=== PATIENT | female | born 1960 | race Caucasian/White ===

== ENCOUNTER → 2020-03-31 11:27 | Outpatient (BNVA) | payer BC, SELFPAY | PROVIDERS: Family Provider Family Medicine; PCP Family Medicine; Visit Provider Internal Medicine Cardiovascular Disease | DX: I10 Essential (primary) hypertension (principal); G43.909 Migraine, unspecified, not intractable, without status migrainosus; I49.3 Ventricular premature depolarization | CPT/HCPCS: 80053; 84443; 85025 ==

== ENCOUNTER → 2020-10-20 10:30 | Outpatient (BNVA) | payer BC, SELFPAY | PROVIDERS: Family Provider Family Medicine; PCP Family Medicine; Visit Provider Family Medicine | DX: R53.83 Other fatigue (principal); Z13.1 Encounter for screening for diabetes mellitus; E89.41 Symptomatic postprocedural ovarian failure; I10 Essential (primary) hypertension; I25.10 Atherosclerotic heart disease of native coronary artery without angina pectoris; Z13.220 Encounter for screening for lipoid disorders; Z13.6 Encounter for screening for cardiovascular disorders; Z83.49 Family history of other endocrine, nutritional and metabolic diseases; K21.00 Gastro-esophageal reflux disease with esophagitis, without bleeding; R49.0 Dysphonia; R53.82 Chronic fatigue, unspecified | CPT/HCPCS: 80053; 80061; 83001; 83002; 83036; 84443; 85025 ==

== ENCOUNTER 2021-01-28 18:27 | Emergency (ER) | payer BC, SELFPAY ==
[2021-01-28 19:46] VITALS: BP 109/73; PULSE 80; RESP 18; TEMP 36.8; O2SAT 96; BMI 33.8
[2021-01-28 20:58] LABS: Basophils # 0.1 10^3/uL (0.0-0.1); Basophils % 0.9 %; Eosinophils # 0.2 10^3/uL (0.0-0.8); Eosinophils % 2.4 %; Hematocrit 37.7 % (37.0-47.0); Hemoglobin 11.9 g/dL (11.5-15.3); Lymphocytes # 3.1 10^3/uL (0.8-4.8); Lymphocytes % 33.4 %; Mean Corpuscular HGB Conc 31.6 g/dL (30.0-36.0); Mean Corpuscular Hemoglobin 29.6 pg (28.0-34.0); Mean Corpuscular Volume 93.8 fL (81-99); Monocytes # 0.9 10^3/uL (0.2-0.9); Monocytes % 9.2 %; Neutrophils # 4.99 10^3/uL (1.8-7.7); Nucleated Red Blood Cells % 0 %; Platelet Count 429 10^3/cmm (130-400); Red Blood Count 4.02 10^6/uL (4.1-5.3); Red Cell Distribution Width 13.2 % (12.1-15.1); White Blood Count 9.2 10^3/uL (4.0-10.0)
[2021-01-28 21:20] LABS: Alanine Aminotransferase 14 U/L (0-33); Albumin Level 4.3 g/dL (3.5-5.2); Alkaline Phosphatase 99 IU/L (35-105); Anion Gap 11.7 (5-19); Aspartate Amino Transferase 20 U/L (0-32); Blood Urea Nitrogen 5 mg/dL (6-20); Calcium 8.5 mg/dL (8.5-10.5); Carbon Dioxide 30 mmol/L (22-29); Chloride 99 mmol/L (98-107); Globulin 3.1 g/dL (1.3-4.6); Glomerular Filtration Rate 64.3 mL/min (90-130); Glucose 101 mg/dL (65-115); Lipase 28 U/L (13-60); Osmolality Calculated 281 mOsm/kg (285-295); Potassium 3.7 mmol/L (3.5-5.1); Sodium 137 mmol/L (136-145); Total Bilirubin 0.5 mg/dL (0.15-1.2); Total Protein 7.4 g/dL (6.6-8.7)
[2021-01-28 21:21] LABS: Lactate (Lactic Acid level) 0.6 mmol/L (0.5-2.2)
[2021-01-28 21:41] VITALS: BP 124/80; PULSE 71; RESP 18; O2SAT 97
--- NOTE | 2021-01-28 21:55 | CTR_ITS ---
PROCEDURE INFORMATION: Exam: CT Abdomen And Pelvis With Contrast Exam date and time: 01/28/2021 10:02 PM Age: 60 years old Clinical indication: Nausea and vomiting; Abdominal pain; Localized; Right lower quadrant (rlq); Prior surgery; Surgery type: Hernia; Patient HX: Rlq abd pain with n/v; Additional info: Rlq pain TECHNIQUE: Imaging protocol: Computed tomography of the abdomen and pelvis with contrast. Radiation optimization: All CT scans at this facility use at least one of these dose optimization techniques: automated exposure control; mA and/or kV adjustment per patient size (includes targeted exams where dose is matched to clinical indication); or iterative reconstruction. Contrast material: OMNI 300; Contrast volume: 95 ml; Contrast route: INTRAVENOUS (IV); COMPARISON: CT abdomen pelvis w con* [id number] 03/09/2019 9:46 PM RADIATION DOSE METRICS: Total DLP (mGy-cm): 1773.65 FINDINGS: Lungs: A stable calcified granuloma seen in the right lung base. Liver: There are stable hepatic cysts present, the largest is seen in the left hepatic lobe measuring 1 cm in diameter. Gallbladder and bile ducts: Normal. No calcified stones. No ductal dilation. Pancreas: Normal. No ductal dilation. Spleen: Calcifications are seen within the spleen compatible with calcified granulomas. Adrenal glands: Normal. No mass. Kidneys and ureters: A stable 14 mm cyst is seen on the lateral aspect of the right kidney. Mild hydronephrosis seen within the right kidney. 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 Stomach and bowel: Unremarkable. No obstruction. No mucosal thickening. Appendix: The appendix is not seen in today's examination. There are no inflammatory changes seen to suggest appendicitis. Intraperitoneal space: Unremarkable. No free air. No significant fluid collection. Vasculature: Unremarkable. No abdominal aortic aneurysm. Lymph nodes: Mildly prominent periportal lymph node is seen that appears smaller today compared with 03/09/2019 measuring 11 mm in transverse diameter. Urinary bladder: Unremarkable as visualized. Reproductive: Status post hysterectomy. Bones/joints: Unremarkable. No acute fracture. Soft tissues: Unremarkable. CT/CT abdomen pelvis w con* [id number] IMPRESSION: 1. There are no acute abdominal findings. 2. Stable benign hepatic and right renal cysts. 3. Mildly prominent periportal lymph node measuring 11 mm transverse diameter appearing smaller today compared with 03/09/2019. 4. Partial duplication of the right ureter. There is mild hydronephrosis seen on the right. There is no evidence for ureteral obstruction. Radiation Dose CTDIVOL = (mGy): DLP = 1773.65 (mGy-cm)
[2021-01-28] MEDS: iohexol 300 mg/mL 100 mL Btl IV (22:05)
[2021-01-28 22:32] LABS: Add Urine Microscopic? YES; Bacteria Urine TRACE /hpf; Bilirubin Urine Neg (Negative); Blood Urine Neg (Negative); Glucose Urine UA Norm (Normal); Ketones Urine Negative (Negative); Leukocyte Esterase Urine Trace (Negative); Nitrate Urine Negative (Negative); Protein Urine Neg (Negative); RBC Urine 0-4 /hpf (0-2); Squamous Epithelial Cell Urine 0-4 /hpf (0-5); Urine Appearance Clear (CLEAR); Urine Color Yellow (Yellow); Urobilinogen Urine Norm (Negative); pH Urine 6 (5-7)
--- NOTE | 2021-01-28 23:09 | W.ED.ABDPA2 ---
HPI - Abdominal Pain General: Chief Complaint: Abdominal Pain Stated Complaint: Stomach Pains, N/V Time Seen by Provider: 01/28/21 21:32 History of Present Illness: HPI narrative: 60-year-old female complaining of abdominal pain, primarily right lower quadrant, on and off for the last 2 days. Associated with nausea, vomiting, bloating, cramping. No fever. No dysuria. She is not had symptoms like this in the past. No diarrhea or flatulence. No heartburn. MD elicited complaint: abdominal pain Associated Symptoms: Reports bloating, constipation and nausea; Denies chills, dysuria, fever(s), heartburn, hematemesis and vomiting Review of Systems General: Reports: 10 or more systems reviewed and unremarkable except in HPI and below Const: Reports: change in appetite; Denies: fever(s), chills or body aches ENMT: Denies: throat pain or enlarged tonsils Card: Denies: chest pain, palpitations, irregular heart rhythm or edema Resp: Denies: dyspnea, productive cough or pain on inspiration GI: Reports: abdominal pain, nausea, constipation and bloating; Denies: vomiting, hematemesis, dysphagia or heartburn : Denies: difficulty voiding, dysuria or urinary frequency Musc: Denies: neck pain or back pain Neuro: Denies: headache(s), numbness in extremities or weakness in extremities Endo: Denies: polyuria, polydipsia or tired all the time [facility] ED PFSH: Medical History CAD (coronary artery disease) Family history of ischemic heart disease and other diseases of the circulatory system GERD (gastroesophageal reflux disease) History of Clostridium difficile colitis HTN (hypertension) Major depressive disorder Migraine Osteopenia PVC (premature ventricular contraction) Social History Smoking and tobacco status: former smoker Quit status (tobacco): has quit using tobacco Female Reproductive History: Spontaneous abortions: No Physical Exam Const: COMMON NORMALS: no acute distress, patient oriented x3, healthy appearing, alert and well nourished GENERAL APPEARANCE: cooperative, comfortable and anxious; not in distress and not ill appearing HENMT: COMMON NORMALS: normocephalic and atraumatic HEAD & SCALP: normocephalic and atraumatic Eye: COMMON NORMALS: Equal, round and reactive pupils present, EOMs intact bilaterally, conjunctivae normal and no scleral icterus CONJUNCTIVA: Yes conjunctivae normal PUPIL: Yes Equal, round and reactive pupils present Resp: COMMON NORMALS: normal respiratory effort, No use of accessory muscles and clear to auscultation bilaterally AUSCULTATION: clear to auscultation bilaterally Cardio: COMMON NORMALS: regular rate and regular rhythm RATE: regular rate RHYTHM: regular rhythm HEART SOUNDS: no murmurs GI: COMMON NORMALS: Normal to inspection, nondistended, normoactive bowel sounds present, Soft to palpation, No hepatosplenomegaly present and no masses INSPECTION: No Abdominal wall edema PALPATION: Yes Soft to palpation, Yes Tenderness to palpation present (GI) Details: RLQ, RUQ and other (epigastric), No Guarding due to palpation present (GI), Yes No hepatosplenomegaly present, No Hernia present, No Palpable mass present, No Pulsatile mass present and No Rebound tenderness present : COMMON NORMALS: Yes no CVA tenderness BLADDER/KIDNEY EXAM: Yes no CVA tenderness EXTERNAL FEMALE EXAM: No Hernia present Back/Pelvis: COMMON NORMALS: no CVA tenderness and thoracic and lumbar spine normal to inspection Neuro: COMMON NORMALS: patient oriented x3 SENSORIUM/ORIENTATION: Yes alert Skin: COMMON NORMALS: no rashes or lesions noted, no wounds, turgor normal and no jaundice GENERAL SKIN EXAM: no rashes or lesions noted and turgor normal Course Vital Signs: Vital signs: Vital Signs Temperature 98.2 F 01/28/21 19:46 Pulse Rate 79 01/29/21 00:11 Respiratory Rate 18 01/29/21 00:11 Blood Pressure 130/83 01/29/21 00:11 Pulse Oximetry 99 01/29/21 00:11 MDM - Abdominal Pain MDM Narrative: Medical decision making narrative: 60-year-old female with 2-3 day history of intermittent abdominal cramping and pain, bloating. Mainly on the right side. Labs negative for any acute abnormalities. CT abdomen pelvis negative for any acute inflammatory process. UA:Trace LE, trace bacteria,10-15 WBCs : Possible UTI, she does have suprapubic tenderness, will prescribe 3-day course of antibiotics. CT abdomen does not show any acute inflammatory process. There is mild hydronephrosis of the right kidney, without any evidence of ureteral obstruction. Treated with cefdinir and Levsin. Instructed to return immediately to the ER if she had worsening pain, or if she developed a fever, nausea and vomiting, Differential Diagnosis: Differential diagnosis abdominal pain: Likely abdominal pain, acute appendicitis, calculus of kidney, constipation, diverticulitis, gastroenteritis, pancreatitis and small bowel obstruction Medical Records: Attestation: I reviewed the patient's medical records. Lab Data: Attestation: I reviewed the patient's lab results. Labs: Lab Results 01/28/21 01/28/21 01/28/21 Range/Units 20:51 20:51 20:51 WBC 9.2 (4.0-10.0) 10^3/ uL RBC 4.02 L (4.1-5.3) 10^6/u L Hgb 11.9 (11.5-15.3) g/dL Hct 37.7 (37.0-47.0) % MCV 93.8 (81-99) fL MCH 29.6 (28.0-34.0) pg MCHC 31.6 (30.0-36.0) g/dL RDW 13.2 (12.1-15.1) % Plt Count 429 H (130-400) 10^3/c mm MPV 10.0 (7.4-10.4) fL Neut % (Auto) 54.0 % Lymph % (Auto) 33.4 % Finney % (Auto) 9.2 % Eos % (Auto) 2.4 % Baso % (Auto) 0.9 % Neut # (Auto) 4.99 (1.8-7.7) 10^3/u L Lymph # (Auto) 3.1 (0.8-4.8) 10^3/u L Finney # (Auto) 0.9 (0.2-0.9) 10^3/u L Eos # (Auto) 0.2 (0.0-0.8) 10^3/u L Baso # (Auto) 0.1 (0.0-0.1) 10^3/u L Nucleated RBC % (a uto) 0 % Nucleated RBCs # 0.0 /100WBC Sodium 137 (136-145) mmol/L Potassium 3.7 (3.5-5.1) mmol/L Chloride 99 (98-107) mmol/L Carbon Dioxide 30 H (22-29) mmol/L Anion Gap 11.7 (5-19) BUN 5 L (6-20) mg/dL Creatinine 0.9 (0.5-0.9) mg/dL GFR Calculation 64.3 L (90-130) mL/min Glucose 101 (65-115) mg/dL Calculated Osmolal ity 281 L (285-295) mOsm/k g Lactate 0.6 (0.5-2.2) mmol/L Calcium 8.5 (8.5-10.5) mg/dL Total Bilirubin 0.5 (0.15-1.2) mg/dL AST 20 (0-32) U/L ALT 14 (0-33) U/L Alkaline Phosphata se 99 (35-105) IU/L Total Protein 7.4 (6.6-8.7) g/dL Albumin 4.3 (3.5-5.2) g/dL Globulin 3.1 (1.3-4.6) g/dL Lipase 28 (13-60) U/L Urine Color (Yellow) Urine Appearance (CLEAR) Urine pH (5-7) Ur Specific Gravit y (1.005-1.030) Urine Protein (Negative) Urine Glucose (UA) (Normal) Urine Ketones (Negative) Urine Blood (Negative) Urine Nitrate (Negative) Urine Bilirubin (Negative) Urine Urobilinogen (Negative) mg/dL Ur Leukocyte Yolande ase (Negative) Urine RBC (0-2) /hpf Urine WBC (0-5) /hpf Ur Squamous Epith Cells (0-5) /hpf Amorphous Sediment Urine Bacteria (NONE) /hpf 01/28/ Range/Units 22:02 WBC (4.0-10.0) 10^3/ uL RBC (4.1-5.3) 10^6/u L Hgb (11.5-15.3) g/dL Hct (37.0-47.0) % MCV (81-99) fL MCH (28.0-34.0) pg MCHC (30.0-36.0) g/dL RDW (12.1-15.1) % Plt Count (130-400) 10^3/c mm MPV (7.4-10.4) fL Neut % (Auto) % Lymph % (Auto) % Finney % (Auto) % Eos % (Auto) % Baso % (Auto) % Neut # (Auto) (1.8-7.7) 10^3/u L Lymph # (Auto) (0.8-4.8) 10^3/u L Finney # (Auto) (0.2-0.9) 10^3/u L Eos # (Auto) (0.0-0.8) 10^3/u L Baso # (Auto) (0.0-0.1) 10^3/u L Nucleated RBC % (a uto) % Nucleated RBCs # /100WBC Sodium (136-145) mmol/L Potassium (3.5-5.1) mmol/L Chloride (98-107) mmol/L Carbon Dioxide (22-29) mmol/L Anion Gap (5-19) BUN (6-20) mg/dL Creatinine (0.5-0.9) mg/dL GFR Calculation (90-130) mL/min Glucose (65-115) mg/dL Calculated Osmolal ity (285-295) mOsm/k g Lactate (0.5-2.2) mmol/L Calcium (8.5-10.5) mg/dL Total Bilirubin (0.15-1.2) mg/dL AST (0-32) U/L ALT (0-33) U/L Alkaline Phosphata se (35-105) IU/L Total Protein (6.6-8.7) g/dL Albumin (3.5-5.2) g/dL Globulin (1.3-4.6) g/dL Lipase (13-60) U/L Urine Color Yellow (Yellow) Urine Appearance Clear (CLEAR) Urine pH 6 (5-7) Ur Specific Gravit y 1.010 (1.005-1.030) Urine Protein Neg (Negative) Urine Glucose (UA) Norm (Normal) Urine Ketones Negative (Negative) Urine Blood Neg (Negative) Urine Nitrate Negative (Negative) Urine Bilirubin Neg (Negative) Urine Urobilinogen Norm (Negative) mg/dL Ur Leukocyte Yolande ase Trace H (Negative) Urine RBC 0-4 H (0-2) /hpf Urine WBC 10-15 H (0-5) /hpf Ur Squamous Epith Cells 0-4 H (0-5) /hpf Amorphous Sediment Not Reportable Urine Bacteria Trace (NONE) /hpf Other Data: Attestation for Other Data: I personally reviewed and interpreted the following: Discharge Plan Discharge Patient Disposition: Home Clinical Impression: Abdominal pain Qualifiers: Abdominal location: generalized Qualified Code(s): R10.84 - Generalized abdominal pain Condition: Stable Prescriptions: New Levsin 0.125 mg tablet 0.125 mg PO Q6H PRN (Reason: dyspepsia) Qty: 30 RF: 0 cefdinir 300 mg capsule 300 mg PO BID 3 Days Qty: 6 RF: 0 No Action mupirocin 2 % ointment 1 applic TOPICAL TID Qty: 15 RF: 1 lamotrigine [Lamictal] 25 mg tablet 25 mg PO DAILY RF: 0 methocarbamol [Robaxin-750] 750 mg tablet 750 mg PO TID PRN (Reason: muscle spasm, neck pain) 6 Days Qty: 18 RF: 0 metronidazole 500 mg tablet 500 mg PO Q8H 10 Days Qty: 30 RF: 0 ciprofloxacin HCl 500 mg tablet 500 mg PO Q12H 10 Days Qty: 20 RF: 0 clonazepam 1 mg tablet 1 mg PO BID RF: 0 sumatriptan succinate [Imitrex] 100 mg tablet 100 mg PO .COMPLEX PRNRF: 0 aspirin [Adult Aspirin Regimen] 81 mg tablet,delayed release (DR/EC) 81 mg PO ONCE RF: 0 potassium 99 mg tablet 99 mg PO .COMPLEX RF: 0 magnesium oxide 400 mg magnesium capsule 400 mg PO .COMPLEX RF: 0 trazodone 100 mg tablet 50 mg PO .COMPLEX RF: 0 hydroxyzine HCl 50 mg tablet 50 mg PO BID RF: 0 duloxetine 60 mg capsule,delayed release(DR/EC) 60 mg PO BID RF: 0 Lidocaine Viscous 2 % solution 1 applic MUCOUS MEM BID Qty: 100 RF: 0 alendronate 35 mg tablet 35 mg PO .WEEKLY 90 Days Qty: 13 RF: 1 pravastatin 10 mg tablet See Rx Instructions .ROUTE .COMPLEX Qty: 90 RF: 3 flecainide 50 mg tablet 50 mg PO .COMPLEX Qty: 180 RF: 3 omeprazole 40 mg capsule,delayed release(DR/EC) 40 mg PO DAILY 30 Days Qty: 30 RF: 2 Discharge Orders: Discharge ED (Routine); Ordered 01/29/21 Ordered By: Morena Holt Referrals: Caitlin Menard MD [Primary Care Provider] - Patient Instructions: Abdominal Pain (ED) Activity Restrictions/Additional Instructions: Make sure to schedule a follow-up appoint with your primary care doctor in the next 2 days. Drink plenty of fluids, rest, return immediately to the ER if you develop worsening pain, fever, abdominal swelling, or any other concerning changes. Stand Alone Forms: Work/School Release Coding Level of Care Code ED Saturation Diver for Chg Fwd Exam Comprehensive
[2021-01-28] MEDS: cefdinir 300 MG CAPSULE PO (23:43)
[2021-01-28] MEDS: hyoscyamine ODT 0.125 mg Tablet 0.25 MG PO (23:49)
[2021-01-28 23:53] VITALS: BP 145/84; PULSE 72; RESP 18; O2SAT 98
[2021-01-29 00:11] VITALS: BP 130/83; PULSE 79; RESP 18; O2SAT 99
== END 2021-01-29 00:12 | disposition home or self-care (01) ==
PROVIDERS: Nurse Practitioner Family; Emergency Provider Family Medicine; PCP Family Medicine
DX: R10.84 Generalized abdominal pain (principal); Z79.82 Long term (current) use of aspirin; I25.10 Atherosclerotic heart disease of native coronary artery without angina pectoris; I10 Essential (primary) hypertension; Z87.891 Personal history of nicotine dependence
CPT/HCPCS: 36415; 74177; 80053; 81001; 83605; 83690; 85025; 99283; Q9967

== ENCOUNTER → 2021-02-01 15:26 | Outpatient (BNVA) | payer BC, SELFPAY | PROVIDERS: PCP Family Medicine; Visit Provider Family Medicine | DX: R10.84 Generalized abdominal pain (principal); A09 Infectious gastroenteritis and colitis, unspecified | CPT/HCPCS: 81000 ==

== ENCOUNTER → 2021-02-03 11:14 | Outpatient (BNVA) | payer BC, SELFPAY | PROVIDERS: PCP Family Medicine; Referring Provider Family Medicine; Visit Provider Family Medicine | DX: A09 Infectious gastroenteritis and colitis, unspecified (principal) | CPT/HCPCS: 87493 ==

== ENCOUNTER → 2021-04-19 12:13 | Outpatient (BNVA) | payer BC, OTHER, SELFPAY | PROVIDERS: PCP Family Medicine; Visit Provider Nurse Practitioner Family | DX: Z20.822 Contact with and (suspected) exposure to COVID-19 (principal) | CPT/HCPCS: 87635 ==

== ENCOUNTER → 2021-07-05 16:49 | Outpatient (BNVA) | payer BC, SELFPAY | PROVIDERS: PCP Family Medicine; Visit Provider Nurse Practitioner Family | DX: M25.512 Pain in left shoulder (principal) | CPT/HCPCS: 73030 ==

== ENCOUNTER → 2022-07-12 16:09 | Outpatient (BNVA) | payer OTHER, BC, SELFPAY | PROVIDERS: PCP Family Medicine; Visit Provider Family Medicine | DX: I10 Essential (primary) hypertension (principal); Z13.220 Encounter for screening for lipoid disorders; Z13.6 Encounter for screening for cardiovascular disorders; Z13.1 Encounter for screening for diabetes mellitus; H53.9 Unspecified visual disturbance; R73.9 Hyperglycemia, unspecified; L57.0 Actinic keratosis; L82.1 Other seborrheic keratosis; Z68.27 Body mass index [BMI] 27.0-27.9, adult | CPT/HCPCS: 80053; 80061; 83036 ==

== ENCOUNTER → 2022-09-27 11:47 | Outpatient (BNVA) | payer OTHER, BC, SELFPAY | PROVIDERS: PCP Family Medicine; Visit Provider Emergency Medicine | DX: R07.9 Chest pain, unspecified (principal) | CPT/HCPCS: 71046 ==

== ENCOUNTER 2022-12-30 15:37 | Emergency (ER) | payer OTHER, BC, SELFPAY ==
[2022-12-30 15:53] VITALS: BP 134/85; PULSE 66; RESP 17; TEMP 36.6; O2SAT 97; BMI 26.6
--- NOTE | 2022-12-30 17:49 | USR_ITS ---
PROCEDURE INFORMATION: Exam: US Duplex Left Lower Extremity Veins, Limited Exam date and time: 12/30/2022 6:23 PM Age: 62 years old Clinical indication: Pain; Leg, lower; Left; Additional info: Swelling TECHNIQUE: Imaging protocol: Real-time duplex ultrasound of the left extremity with 2-D epperson scale, color Doppler flow and spectral waveform analysis including responses to compression and other maneuvers (when performed) with image documentation. Limited exam focused on the left lower extremity veins. COMPARISON: CT abdomen pelvis w con* [id number] 01/28/2021 10:17 PM FINDINGS: Left deep veins: Unremarkable. The common femoral, femoral, proximal profunda femoral and popliteal veins are patent without thrombus. Normal Doppler waveforms. Normal compressibility and/or augmentation response. Left superficial veins: Unremarkable. Saphenofemoral junction is patent without thrombus. Soft tissues: Unremarkable. US/CV venous duplex [facility] [id number] IMPRESSION: No evidence of deep vein thrombosis.
--- NOTE | 2022-12-30 18:58 | W.ED.EXTPRO ---
HPI - Extremity Problem General: Chief complaint: Extremity Problem,Nontraumatic Stated complaint: left leg pain Time Seen by Provider: 12/30/22 18:12 History of Present Illness: Ms. Osei is a 62-year-old lady presenting to the emergency department for atraumatic leg pain and swelling. She reports being at her baseline health and noticing some aching yesterday. She subsequently has developed posterior calf swelling as well as anterior jett contusion and warmth with tenderness. There are some radiation of pain down the leg with mild paresthesias in the plantar aspect of the foot. No other specific changes in health, exacerbating, or alleviating factors identified. Onset (ago): day(s) Pain Consistency: constant Location: left and lower extremity Quality: aching Relieving factors: nothing Exacerbating factors: weight bearing and palpation Associated symptoms: Reports no associated symptoms Review of Systems General: Reports: 10 or more systems reviewed and unremarkable except in HPI and below PFSH ED PFSH: Medical History CAD (coronary artery disease) Family history of ischemic heart disease and other diseases of the circulatory system GERD (gastroesophageal reflux disease) History of Clostridium difficile colitis HTN (hypertension) Major depressive disorder Migraine Osteopenia PVC (premature ventricular contraction) Social History Smoking and tobacco status: current every day smoker Quit status (tobacco): has quit using tobacco Alcohol intake: current Alcohol intake frequency: holidays/special occasions only Female Reproductive History: Spontaneous abortions: No Physical Exam Const: COMMON NORMALS: alert GENERAL APPEARANCE: cooperative and well developed HENMT: COMMON NORMALS: normocephalic and atraumatic HEAD & SCALP: normocephalic and atraumatic THROAT: posterior oropharynx normal Eye: COMMON NORMALS: conjunctivae normal CONJUNCTIVA: Yes conjunctivae normal SCLERA: sclerae normal Neck/C-Spine: COMMON NORMALS: supple GENERAL: Yes trachea midline Resp: COMMON NORMALS: clear to auscultation bilaterally EFFORT & INSPECTION: Yes able to speak in complete sentences AUSCULTATION: clear to auscultation bilaterally Cardio: COMMON NORMALS: regular rate and regular rhythm RATE: regular rate RHYTHM: regular rhythm GI: COMMON NORMALS: Soft to palpation PALPATION: Yes Soft to palpation and No Tenderness to palpation present (GI) Extremity: NARRATIVE EXTREMITY EXAM: Ecchymosis to right anterior mid jett. Normal range of motion. CMS intact. Mild tenderness palpation of the calf region however this area is soft and there is no pain with plantar or dorsiflexion of the foot. Extensor mechanism is intact. GENERAL: Yes normal exam except as noted and No edema Neuro: COMMON NORMALS: moves all extremities SENSORIUM/ORIENTATION: Yes alert and No Orientation impaired Psych: COMMON NORMALS: mental status grossly normal and Normal thought process present THOUGHT PROCESS: Normal thought process present Course Vital Signs: Vital signs: Vital Signs Temperature 97.9 F 12/30/22 15:53 Pulse Rate 68 12/30/22 19:46 Respiratory Rate 18 12/30/22 19:46 Blood Pressure 131/86 12/30/22 19:46 Pulse Oximetry 99 12/30/22 19:46 Oxygen Delivery Me thod Room Air 12/30/22 19:20 MDM - Extremity (Nontraumatic) Medical Decision Making 62-year-old lady presenting with nontraumatic lower extremity pain and abnormalities. Exam as above. X-ray and ultrasound are negative for acute pathology. Patient improved with analgesia. The results of ED evaluation were discussed with the patient including prescriptions and/or symptomatic cares (if applicable) including appropriate and responsible use, followup plan, and return precautions. The patient verbalized understanding and felt safe for discharge. Medical Records I reviewed the patient's medical records. Lab Data I reviewed the patient's lab results. Radiology Impressions Venous Duplex 12/30/22 17:49 IMPRESSION: No evidence of deep vein thrombosis. Tibia/Fibula X-Ray 12/30/22 19:07 IMPRESSION: No acute findings. Discharge Plan Discharge Patient Disposition: Home Clinical Impression: Contusion of left lower leg, Leg pain, Swelling of calf Condition: Stable Prescriptions: No Action lamotrigine [Lamictal] 25 mg tablet 25 mg PO DAILY clonazepam 1 mg tablet 1 mg PO BID sumatriptan succinate [Imitrex] 100 mg tablet 100 mg PO .COMPLEX PRN Rx Instructions: 100 mg PO PRN; magnesium oxide 400 mg magnesium capsule 400 mg PO .COMPLEX Rx Instructions: 400 mg PO daily; trazodone 100 mg tablet 50 mg PO .COMPLEX Rx Instructions: 50 mg PO at bedtime; duloxetine 60 mg capsule,delayed release(DR/EC) 60 mg PO DAILY omeprazole 40 mg capsule,delayed release(DR/EC) 40 mg PO DAILY 90 Days Qty: 90 3RF pravastatin 10 mg tablet See Rx Instructions .ROUTE .COMPLEX Qty: 90 3RF Dose Instruction: Take 1 tablet by mouth once daily Rx Instructions: Take 1 tablet by mouth once daily triamcinolone acetonide 0.1 % cream 1 applic topical BID PRN (Reason: rash) Qty: 80 5RF Rx Instructions: to palms fluconazole 150 mg tablet 150 mg PO Q3D 0 Days Qty: 2 1RF Rx Instructions: may repeat second dose 72 hrs after first dose if symptoms persist flecainide 50 mg tablet 50 mg PO Q12H Qty: 180 3RF Discharge Orders: Discharge ED (Routine); Ordered 12/30/22 Ordered By: Raul Brown Referrals: Caitlin Menard MD [Primary Care Provider] - Discharge Diet: Usual diet Discharge Activity: Increase activity as tolerated Patient Instructions: Contusion in Adults (ED), P.R.I.C.E. Treatment (ED), Leg Pain (ED) Activity Restrictions/Additional Instructions: Thank you for visiting the emergency department. You were seen and evaluated for leg pain and swelling. The exact cause your symptoms is unclear however does not need further ED evaluation or inpatient management at this time. You may use [id number] medications such as acetaminophen and ibuprofen for pain however please do not exceed the daily recommended dosage as listed on the packaging and please keep in mind that many namebrand medications contain the same active ingredients. Please avoid these medications if previously instructed to do so by another physician due to other underlying medical condition. Rest, elevation, ice will also help. Return to the emergency department for uncontrolled symptoms or anything else you are concerned about and feel needs emergency department evaluation. Coding Level of Care Code ED [place] [employer] for Osmar Sandoval
--- NOTE | 2022-12-30 19:07 | XRR_ITS ---
PROCEDURE INFORMATION: Exam: XR Left Tibia and Fibula Exam date and time: 12/30/2022 7:17 PM Age: 62 years old Clinical indication: Swelling, leg or foot; Additional info: Atraumatic swelling/contusion/hematoma TECHNIQUE: Imaging protocol: Radiologic exam of the left tibia and fibula. Views: 2 views. COMPARISON: [place] [id number] 12/30/2022 6:23 PM FINDINGS: Bones/joints: Tibia and fibula are intact. Negative for fracture. Soft tissues: Normal. XR/XR tibia fibula LT 2V [id number] IMPRESSION: No acute findings.
[2022-12-30] MEDS: ketorolac 30 mg/mL INJ IM (19:15)
[2022-12-30] MEDS: acetaminophen 500 mg Tablet 1000 MG PO (19:15)
[2022-12-30 19:20] VITALS: BP 131/86; PULSE 68; RESP 18; O2SAT 99
[2022-12-30 19:46] VITALS: BP 131/86; PULSE 68; RESP 18; O2SAT 99
== END 2022-12-30 19:47 | disposition home or self-care (01) ==
PROVIDERS: Emergency Provider Emergency Medicine; PCP Family Medicine
DX: S80.12XA Contusion of left lower leg, initial encounter (principal); M79.89 Other specified soft tissue disorders; I25.10 Atherosclerotic heart disease of native coronary artery without angina pectoris; I10 Essential (primary) hypertension; F17.210 Nicotine dependence, cigarettes, uncomplicated; X58.XXXA Exposure to other specified factors, initial encounter
CPT/HCPCS: 73590; 93971; 96372; 99284; J1885

== ENCOUNTER → 2023-03-21 15:00 | Outpatient (BNVA) | payer OTHER, BC, SELFPAY | PROVIDERS: PCP Family Medicine; Visit Provider Internal Medicine Cardiovascular Disease | DX: R00.2 Palpitations (principal); R94.31 Abnormal electrocardiogram [ECG] [EKG] | CPT/HCPCS: 93005 ==

== ENCOUNTER 2023-04-13 12:07 | Outpatient (CLI) | payer OTHER, BC, SELFPAY ==
--- NOTE | 2023-04-13 13:00 | USCV_ITS ---
Mary Osei Age: 62 Gender: F : 1960 Exam Date: 04/13/2023 12:39 Ordering Phys: Ghazal Bravo MD ([email or web address]) Technologist: Exam Location: [facility] Indication: Murmur BP: 120 / 70 HR: 68 Rhythm: Sinus Technical Quality: Adequate MEASUREMENTS (Male / Female) Normal Values 2D ECHO LV Diastolic Diameter PLAX 3.6 cm 4.2 - 5.9 / 3.9 - 5.3 cm LV Systolic Diameter PLAX 2.8 cm IVS Diastolic Thickness 1.3 cm 0.6 - 1.0 / 0.6 - 0.9 cm IVS Systolic Thickness 1.8 cm LVPW Diastolic Thickness 1.1 cm 0.6 - 1.0 / 0.6 - 0.9 cm LVPW Systolic Thickness 1.5 cm LVOT Diameter 2.0 cm LV Ejection Fraction 2D Teich 37.3 % LV Ejection Fraction MOD 2C 65.2 % LV Ejection Fraction 2C AL 65.8 % LA Diameter 3.3 cm IVC Diameter 1.5 cm M-MODE Aortic Annulus Diameter 2.9 cm LA Ao Ratio MM 1.3 MV E Point Septal Separation 0.7 cm DOPPLER AV Peak Velocity 144.0 cm/s LVOT Peak Velocity 91.0 cm/s AV Area Cont Eq vti 2.0 cm squared AV Area Cont Eq pk 2.0 cm squared MV E' Velocity 10.0 cm/s TR Peak Velocity 189.0 cm/s TR Peak Gradient 14.3 mmHg TV Peak E Velocity 79.0 cm/s Right Atrial Pressure 3.0 mmHg Pulmonary Artery Systolic Pressu 17.3 mmHg RV Acceleration Time 0.1 s FINDINGS Left Ventricle Normal left ventricular size, systolic function and wall thickness, with no regional wall motion abnormalities. Left ventricular ejection fraction is estimated at 70 %. Normal diastolic function. Right Ventricle Normal right ventricular size and systolic function. Normal right ventricular systolic pressure. Right Atrium Normal right atrial size. Left Atrium Normal left atrial size. Mitral Valve Structurally normal mitral valve. No mitral valve stenosis. Trace mitral valve regurgitation. Aortic Valve Structurally normal trileaflet aortic valve. No aortic valve stenosis. No aortic valve regurgitation. Tricuspid Valve Structurally normal tricuspid valve. No tricuspid valve stenosis. Trace tricuspid valve regurgitation. Pulmonic Valve Structurally normal pulmonic valve. No pulmonary valve stenosis. Trace pulmonary valve regurgitation. Pericardium No pericardial effusion. Aorta Normal size aortic root and proximal ascending aorta. IVC Normal IVC dimension with >50% respiratory change of the inferior vena cava. CONCLUSIONS 1. Normal left ventricular size, systolic function and wall thickness, with no regional wall motion abnormalities. Left ventricular ejection fraction is estimated at 70 %. Normal diastolic function. 2. No significant valvular abnormality. 3. No prior similar studes to compare. Ghazal Bravo MD (Electronically Signed) Final Date: 13 April 2023 16:29 S
== END 2023-04-13 12:08 | disposition home or self-care (01) ==
PROVIDERS: PCP Family Medicine; Visit Provider Internal Medicine Cardiovascular Disease
DX: I49.3 Ventricular premature depolarization (principal); R00.0 Tachycardia, unspecified; R06.02 Shortness of breath
CPT/HCPCS: 93306

== ENCOUNTER → 2023-09-04 11:36 | Outpatient (BNVA) | payer OTHER, BC, SELFPAY | PROVIDERS: PCP Family Medicine; Visit Provider Family Medicine | DX: R53.83 Other fatigue (principal); Z83.49 Family history of other endocrine, nutritional and metabolic diseases; I10 Essential (primary) hypertension; Z51.81 Encounter for therapeutic drug level monitoring | CPT/HCPCS: 80053; 80061; 84443; 85025 ==

== ENCOUNTER → 2024-05-25 17:02 | Outpatient (BNVA) | payer BC, SELFPAY | PROVIDERS: PCP Family Medicine; Visit Provider Nurse Practitioner Family | DX: R07.9 Chest pain, unspecified (principal) | CPT/HCPCS: 93005 ==

== ENCOUNTER → 2024-10-01 09:45 | Outpatient (BNVA) | payer BC, SELFPAY | PROVIDERS: PCP Family Medicine; Visit Provider Family Medicine | DX: I25.10 Atherosclerotic heart disease of native coronary artery without angina pectoris; R53.83 Other fatigue | CPT/HCPCS: 80053; 80061; 84443; 85025 ==

== ENCOUNTER 2024-10-14 14:45 | Outpatient (CLI) | payer BC, SELFPAY ==
--- NOTE | 2024-10-14 15:00 | XR_ITS ---
WS: [id number] DEXA (DUAL ENERGY X-RAY ABSORPTIOMETRY) Bone mineral density was performed using a [employer] machine. HISTORY: Z13.820 - Encounter for screening for osteoporosis COMPARISON: None available. Lumbar spine BMD (L1-L4): 0.962 g/cm2 T score: -1.8 Z score: -0.6 Total hip BMD: Left: 0.824 g/cm2. T score: -1.5 Z score: -0.6 Right: 0.860 g/cm2. T score: -1.2 Z score: -0.3 10 year probability of a major osteoporotic fracture is 16.8%. XR/XR DEXA axial skeleton* [id number] IMPRESSION: OSTEOPENIA based upon the WHO classification for females.
--- NOTE | 2024-10-14 15:00 | XR_ITS ---
WS: [id number] XR hip BI m 5V wo/w pel* [id number] REASON FOR EXAM: M25.551 - Pain in right hip FINDINGS: No fracture or focal bone lesion. Mild narrowing of the joint space, most notably posteriorly and inferiorly with mild subchondral scle rosis and osteophytosis of the acetabulum. No soft tissue abnormality. XR/XR hip BI m 5V wo/w pel* [id number] IMPRESSION: Mild osteoarthritis of the right hip.
--- NOTE | 2024-10-14 15:00 | XR_ITS ---
WS: [id number] XR lumbar spine 2-3V* [id number] REASON FOR EXAM: M51.369 - Other intervertebral disc degeneration, lumbar ... FINDINGS: Relatively normal lumbar spine curvatures. No vertebral body abnormality. Intervertebral disc spaces are intact and relatively well preserved. No spondylolysis and no significant spondylolisthesis. XR/XR lumbar spine 2-3V* [id number] IMPRESSION: No significant abnormality.
== END 2024-10-14 14:46 | disposition home or self-care (01) ==
LOC: RAD 14:52
PROVIDERS: PCP Family Medicine; Visit Provider Family Medicine
DX: Z13.820 Encounter for screening for osteoporosis (principal); Z78.0 Asymptomatic menopausal state; M51.369 Other intervertebral disc degeneration, lumbar region without mention of lumbar back pain or lower extremity pain; M85.80 Other specified disorders of bone density and structure, unspecified site; M16.11 Unilateral primary osteoarthritis, right hip; M25.759 Osteophyte, unspecified hip
CPT/HCPCS: 72100; 73523; 77080

== ENCOUNTER → 2024-10-25 15:45 | Outpatient (BNVA) | payer BC, SELFPAY | PROVIDERS: PCP Family Medicine; Visit Provider Nurse Practitioner | DX: R30.0 Dysuria (principal) | CPT/HCPCS: 81000 ==